=== PATIENT | female | born 1995 ===

== ENCOUNTER 2021-11-11 19:15 | Observation (INO) | payer SELFPAY ==
[2021-11-11] MEDS: IV RINGERS,LACTATED 1000ML 1,000 ML IV SCH ×2 (19:49→20:58)
[2021-11-11 20:01] LABS: BILIRUBIN,URINE NEGATIVE (NEG); CLARITY,URINE CLEAR; COLOR,URINE AMBER; NITRITE,URINE NEGATIVE (NEG); PH,URINE 6.5 (<5.0-8.0); PROTEIN,URINE NEGATIVE (NEG-TRACE)
[2021-11-11 20:09] LABS: BARBITURATES NEG (NEG); BENZODIAZEPINES NEG (NEG); CANNABINOIDS NEG (NEG); COCAINE NEG (NEG); METHADONE NEG (NEG); OPIATES NEG (NEG); PHENCYCLIDINE NEG (NEG)
[2021-11-11 20:10] LABS: BACTERIA,URINE MODERATE /HPF (0-FEW); RBC,URINE 0 /HPF (0-2); YEAST,URINE PRESENT /HPF
[2021-11-11 20:11] LABS: AMPHETAMINE/METHAMPHETAMINE NEG (NEG)
== END 2021-11-11 22:30 | disposition home or self-care (01) ==
LOC: 3 SO LND 19:15
PROVIDERS: ADMIT Obstetrics & Gynecology; ATTEND Obstetrics & Gynecology
DX: O62.9 Abnormality of forces of labor, unspecified (principal); O26.853 Spotting complicating pregnancy, third trimester; Z3A.37 37 weeks gestation of pregnancy; Z79.899 Other long term (current) drug therapy; Z98.890 Other specified postprocedural states
CPT/HCPCS: 59025; 80307; 81001; 87086; 96360; 96361; G0378; G0379; J7120